=== PATIENT | female | born 2000 | race Caucasian/White ===

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

== ENCOUNTER 2019-09-05 22:53 | Emergency (ER) | payer BC, OTHER ==
--- NOTE | 2019-09-05 23:36 | ER Document Report ---
ED General - General Chief Complaint: Bloody Stools Stated Complaint: DIARRHEA Time Seen by Provider: 09/05/19 23:34 Primary Care Provider: ROXIE MINAYA NP [Primary Care Provider] - Follow up as needed Mode of Arrival: Ambulatory Information source: Patient TRAVEL OUTSIDE OF THE [place] IN LAST 30 DAYS: No - HPI Onset: Other - over the last 5 days Onset/Duration: Gradual Quality of pain: Cramping Severity: Moderate Pain Level: 2 Associated symptoms: Diarrhea - with blood in her stools, Nausea, Vomiting Exacerbated by: Denies Relieved by: Denies Similar symptoms previously: Yes - patient has had the same lower abdominal pains with endometriosis pain Recently seen / treated by doctor: Yes - Patient was recently diagnosed with Strep Throat and was prescribed Amox Notes: 19 year old female with a history of Endometriosis and Asthma here for several days of nausea, vomiting, blood diarrhea in the setting of recently taking Amoxicillin for a "throat infection." The patient says she saw an outpatient provider and was told she has a throat infection and she was prescribed Amoxicillin. The patient says she developed the nausea, vomiting, abdominal pain, and blood diarrhea after taking several days of Amoxicillin. The patient was told to stop taking Amoxicillin which she did but she is still having the symptoms. The patient denies fevers, chills, sweats, urinary symptoms. The patient is on her period. - Related Data Allergies/Adverse Reactions: No Known Allergies Allergy (Verified 09/05/19 22:58) Past Medical History - General Information source: Patient - Social History Smoking Status: Former Smoker Frequency of alcohol use: Occasional Drug Abuse: None Family History: Reviewed & Not Pertinent Patient has suicidal ideation: No Patient has homicidal ideation: No - Past Medical History Cardiac Medical History: Denies: Hx Coronary Artery Disease, Hx Heart Attack, Hx Hypertension Pulmonary Medical History: Reports: Hx Asthma - allergy induced asthma Denies: Hx Bronchitis, Hx COPD, Hx Pneumonia Neurological Medical History: Denies: Hx Cerebrovascular Accident, Hx Seizures Renal/ Medical History: Denies: Hx Peritoneal Dialysis Musculoskeletal Medical History: Denies Hx Arthritis Past Surgical History: Reports: Hx Tonsillectomy - Immunizations Immunizations up to date: Yes Hx Diphtheria, Pertussis, Tetanus Vaccination: Yes Review of Systems - Review of Systems Constitutional: No symptoms reported EENT: No symptoms reported Cardiovascular: No symptoms reported Respiratory: No symptoms reported Gastrointestinal: Abdominal pain, Diarrhea - with blood in it, Nausea, Vomiting Genitourinary: No symptoms reported Female Genitourinary: Other - patient is on her period Musculoskeletal: No symptoms reported Skin: No symptoms reported Hematologic/Lymphatic: No symptoms reported Neurological/Psychological: No symptoms reported -: Yes All other systems reviewed and negative Physical Exam - Vital signs Vitals: Temp Resp BP Pulse Ox 99.1 F 18 133/83 H 98 09/05/19 22:58 09/05/19 22:58 09/05/19 22:58 09/05/19 22:58 - Notes Notes: GENERAL: Well-appearing, well-nourished and in no acute distress. HEAD: Atraumatic, normocephalic. EYES: Pupils equal round and reactive to light, extraocular movements intact, sclera anicteric, conjunctiva are normal. ENT: TMs normal, nares patent, oropharynx clear without exudates. Moist mucous membranes. NECK: Normal range of motion, supple without lymphadenopathy or JVD. LUNGS: Breath sounds clear to auscultation bilaterally and equal. No wheezes rales or rhonchi. HEART: Regular rate and rhythm without murmurs, rubs or gallops. ABDOMEN: Soft, mild tenderness in lower abdomen bilaterally, normoactive bowel sounds. No guarding, no rebound. No masses appreciated. EXTREMITIES: Normal range of motion, no pitting or edema. No clubbing or cyanosis. NEUROLOGICAL: Cranial nerves II through XII grossly intact. Normal speech, normal gait. PSYCH: Normal mood, normal affect. SKIN: Warm, Dry, normal turgor, no rashes or lesions noted. Course - Re-evaluation Re-evalutation: 09/06/19 02:23 The patient has had several days of lower abdominal pains with nausea, vomiting, and bloody diarrhea. The patient was just on Amoxicillin so this could have caused her symptoms. Patient tested negative for C-diff in the ER today. Patient felt better after fluids, zofran, toradol, reglan, morphine. Patient has no urinary symptoms and she is currently on her period hence the abnormal appearing UA. Stool and Urine Cultures pending. Patient told to follow up with her PCP if symptoms persist for further work up. Patients blood work unremarkable today. - Vital Signs Vital signs: Temp Pulse Resp BP Pulse Ox 99.1 F 18 133/83 H 98 09/05/19 22:58 09/05/19 22:58 09/05/19 22:58 09/05/19 22:58 - Laboratory Result Diagrams: 09/05/19 23:13 09/05/19 23:13 Laboratory results interpreted by me: 09/05/19 09/05/19 23:13 23:37 Sodium 134.8 L Urine Blood LARGE H Ur Leukocyte Esterase SMALL H Discharge - Discharge Clinical Impression: Diarrhea Qualifiers: Diarrhea type: unspecified type Qualified Code(s): R19.7 - Diarrhea, unspecified Abdominal pain Qualifiers: Abdominal location: lower abdomen, unspecified Qualified Code(s): R10.30 - Lower abdominal pain, unspecified Condition: Stable Disposition: HOME, SELF-CARE Additional Instructions: Follow up with your primary care doctor and tell him/her you were in the ER for abdominal pain with blood stools. You had blood work including a CBC, CMP, Lipase which was all normal. You tested negative for C-diff but your stool culture is still pending. You have a urine culture pending as well. You will be notified if your stool or urine cultures are positive. Use Reglan for nausea/vomiting/abdominal cramps. Use over the counter Tylenol and Motrin for pain. Return to an ER for a large amount of rectal bleeding, high fevers, uncontrolled pain or if worse. Prescriptions: Metoclopramide HCl [Reglan 10 mg Tablet] 10 mg PO BID PRN #15 tablet PRN Reason: Referrals: ROXIE MINAYA [employer] [Primary Care Provider] - Follow up as needed
[2019-09-05 23:38] LABS: ABSOLUTE BASOPHILS # (AUTO) 0.1 10^3/uL (0.0-0.2); ABSOLUTE EOSINOPHILS # (AUTO) 0.4 10^3/uL (0.0-0.6); ABSOLUTE LYMPHOCYTES (AUTO) 2.5 10^3/uL (0.5-4.7); ABSOLUTE MONOCYTES (AUTO) 0.8 10^3/uL (0.1-1.4); ABSOLUTE NEUT (AUTO) 6.3 10^3/uL (1.7-8.2); EOSINOPHILS % (AUTO) 3.9 % (0-6); HEMATOCRIT 42.5 % (36.0-47.0); HEMOGLOBIN 14.7 g/dL (12.0-15.5); LYMPHOCYTES % (AUTO) 24.9 % (13-45); MEAN CORPUSCULAR HEMOGLOBIN 30.6 pg (27.0-33.4); MEAN CORPUSCULAR HGB CONC 34.7 g/dL (32.0-36.0); MEAN CORPUSCULAR VOLUME 88 fl (80-97); MONOCYTES % (AUTO) 8.1 % (3-13); PLATELET COUNT 233 10^3/uL (150-450); RED BLOOD COUNT 4.82 10^6/uL (3.72-5.28); RED CELL DISTRIBUTION WIDTH 12.6 % (11.5-14.0); SEGMENTED NEUTROPHILS % (AUTO) 62.1 % (42-78); TOTAL CELLS COUNTED % (AUTO) 100 %; WHITE BLOOD COUNT 10.2 10^3/uL (4.0-10.5)
[2019-09-05 23:49] LABS: ALBUMIN 4.4 g/dL (3.5-5.0); ALKALINE PHOSPHATASE 64 U/L (38-126); ANION GAP 7 (5-19); ASPARTATE AMINO TRANSFERASE 22 U/L (14-36); BILIRUBIN,TOTAL 0.4 mg/dL (0.2-1.3); BLOOD UREA NITROGEN 13 mg/dL (7-20); CALCIUM 9.5 mg/dL (8.4-10.2); CARBON DIOXIDE 27 mmol/L (22-30); CHLORIDE 101 mmol/L (98-107); GLUCOSE 99 mg/dL (75-110); POTASSIUM 4.3 mmol/L (3.6-5.0)
[2019-09-05] MEDS ORDERED: ONDANSETRON HCL INJ/PF 4 MG/2 ML SDV IV ONE (23:56)
[2019-09-05] MEDS ORDERED: KETOROLAC TROMETHAMINE INJ/PF 30 MG/1 ML SDV IV ONE (23:57)
[2019-09-05] MEDS ORDERED: NORMAL SALINE 1000 ML 1,000 ML IV ONE (23:57)
[2019-09-06 00:02] LABS: APPEARANCE,URINE CLEAR; BILIRUBIN,URINE NEGATIVE (NEGATIVE); COLOR,URINE YELLOW; GLUCOSE, URINE NEGATIVE (NEGATIVE); KETONES,URINE NEGATIVE (NEGATIVE); LEUKOCYTE ESTERASE,URINE SMALL (NEGATIVE); NITRITE,URINE NEGATIVE (NEGATIVE); PROTEIN,URINE NEGATIVE (NEGATIVE); URINE SPECIFIC GRAVITY 1.008; UROBILINOGEN,URINE NEGATIVE mg/dL (<2.0)
[2019-09-06] MEDS ORDERED: METOCLOPRAMIDE HCL INJ/PF 10 MG/2 ML SDV IV ONE (01:30)
[2019-09-06] MEDS ORDERED: MORPHINE SULFATE 10 MG/ML INJ IV ONE (01:31)
[2019-09-06 01:47] LABS: C DIFFICILE GDH NEGATIVE (NEGATIVE)
[2019-09-06 02:43] VITALS: BP 114/67
== END 2019-09-06 02:42 | disposition home or self-care (01) ==
LOC: ER 22:53
DX: R19.7 Diarrhea, unspecified (principal); R10.30 Lower abdominal pain, unspecified; R19.5 Other fecal abnormalities; R11.2 Nausea with vomiting, unspecified; J45.909 Unspecified asthma, uncomplicated; Z87.891 Personal history of nicotine dependence
CPT/HCPCS: 99284; 96361; 96374; 96375; 36415; 87045; 87205; 83690; 85025; 81025; 80053; 81001; 87324; 87449; J1885; J2765; J2270; J2405; J7030; 87086; 87088

== ENCOUNTER 2020-01-09 20:11 | Emergency (ER) | payer OTHER ==
[2020-01-09] MEDS ORDERED: ACETAMINOPHEN 325 MG TABLET PO ONE (20:31)
[2020-01-09] MEDS ORDERED: NORMAL SALINE 1000 ML 1,000 ML IV ONE ×2 (21:12→23:18)
--- NOTE | 2020-01-09 21:30 | ER Document Report ---
ED GI/ - General Chief Complaint: Nausea/Vomiting/Diarrhea Stated Complaint: LIGHTHEADED,NAUSEA,VOMITING,DIARRHEA Time Seen by Provider: 01/09/20 21:11 Primary Care Provider: ROXIE MINAYA NP [Primary Care Provider] - Follow up tomorrow JAKI GUNN MD [ACTIVE PROVISIONAL STAFF] - Follow up in 3-5 days Notes: Patient is a 19-year-old female who presents to the emergency department with a chief complaint of a fever, nausea, vomiting, diarrhea, and generally not feeling well. Patient states that she was coughed on by someone when she asked them to wear a mask at her work because the person did not want to wear a mask. Patient works at [employer]. Patient states that she has been laying in bed all day. She denies any shortness of breath or difficulty breathing. TRAVEL OUTSIDE OF THE [place] IN LAST 30 DAYS: No - Related Data Allergies/Adverse Reactions: No Known Allergies Allergy (Verified 09/05/19 22:58) Past Medical History - Social History Smoking Status: Current Every Day Smoker Frequency of alcohol use: None Drug Abuse: None Family History: Reviewed & Not Pertinent Patient has homicidal ideation: No - Past Medical History Cardiac Medical History: Denies: Hx Coronary Artery Disease, Hx Heart Attack, Hx Hypertension Pulmonary Medical History: Reports: Hx Asthma - allergy induced asthma Denies: Hx Bronchitis, Hx COPD, Hx Pneumonia Neurological Medical History: Denies: Hx Cerebrovascular Accident, Hx Seizures Renal/ Medical History: Denies: Hx Peritoneal Dialysis GI Medical History: Reports: Hx Gastroesophageal Reflux Disease Musculoskeletal Medical History: Denies Hx Arthritis Psychiatric Medical History: Reports: Hx Depression - anxiety Past Surgical History: Reports: Hx Gynecologic Surgery - x2, Hx Tonsillectomy - Immunizations Immunizations up to date: Yes Hx Diphtheria, Pertussis, Tetanus Vaccination: Yes Review of Systems - Review of Systems Notes: REVIEW OF SYSTEMS: CONSTITUTIONAL : Denies recent unintentional weight loss. See HPI. EENT: Denies eye, ear, throat, or mouth pain, discharge, or symptoms. Denies nasal or sinus congestion. CARDIOVASCULAR: Denies chest pain. RESPIRATORY: Denies shortness of breath, cough, congestion, difficulty breathing, or wheezing. GASTROINTESTINAL: See HPI. GENITOURINARY: Denies difficulty urinating, burning, blood in urine, urgency or frequency. MUSCULOSKELETAL: Denies neck and back pain. Denies joint pain or swelling. SKIN: Denies rash, itchiness, or lesions HEMATOLOGIC : Denies easy bruising or bleeding. LYMPHATIC: Denies swollen, painful, enlarged glands. NEUROLOGICAL: Denies no numbness or tingling denies weakness. Denies headache. Denies altered mental status. Denies alteration in speech. PSYCHIATRIC: Denies stress, anxiety, alteration in sleep patterns, or depression. All other systems reviewed and negative. Physical Exam - Vital signs Vitals: Temp Pulse Resp BP Pulse Ox 102.6 F H 132 H 20 102/54 L 100 01/09/20 20:33 01/09/20 20:33 01/09/20 20:33 01/09/20 20:33 01/09/20 20:33 - Notes Notes: PHYSICAL EXAMINATION: GENERAL: Appears unwell, no acute distress. HEAD: Normocephalic, atraumatic. EYES: PERRL, conjunctiva normal, all extraocular movements intact, sclera nonicteric ENT: Moist mucous membranes. NECK: Supple, no noticeable swelling, redness, rash. Normal range of motion. LUNGS: Equal breath sounds bilaterally and clear to auscultation. No wheezes rales or rhonchi. CARDIOVASCULAR: S1-S2, tachycardic, regular rhythm. Radial pulses 2+, normal. ABDOMEN: Normoactive bowel sounds. Soft, nontender, no guarding, no rebound tenderness, and no masses palpated. EXTREMITIES: Normal strength and range of motion, no pitting or edema. No cyanosis. NEUROLOGICAL: Moves all extremities upon command. Strength 5/5 in all extremities. PSYCH: Normal mood, normal affect. SKIN: Warm, dry. No rash, lesions, ulcerations noted. Normal skin turgor. ENGINE ASSEMBLER: Cervical motion tenderness noted. Bilateral adnexal tenderness noted. Course - Re-evaluation Re-evalutation: 01/09/20 23:43 Patient has a 4.8 cm indeterminate right ovarian cyst. Radiologist is recommending pelvic ultrasound. Order placed. Patient also has some colitis. Appendix is normal. Pelvic exam done with YUNG Franco. Cervical motion tenderness noted with chandelier sign.Hematology shows a leukocytosis of 15,000 with a left shift. This is most likely due to her PAD and left otitis media. Urinalysis shows a moderate blood. Patient has 3+ epithelial cells, 3+ bacteria, and 2+ WBCs. No yeast or trichomonas noted. Chlamydia and gonorrhea were negative. On my initial exam, the patient had erythema and purulent drainage behind her left tympanic membrane. Patient received 1 g of Rocephin. 01/10/20 02:05 Patient is now tolerating oral fluids. Discussed this patient with Dr. Acosta my attending. Patient's heart rate is now in the 90s. We will send the patient home with nausea medication and treatment for pelvic inflammatory disease. Patient is in agreement with this plan. Follow-up precautions were given. Verbal discharge instructions were given to the patient. They verbalized understanding. They are stable for discharge. - Vital Signs Vital signs: Temp Pulse Resp BP Pulse Ox 98.5 F 116 H 17 103/57 L 99 01/10/20 02:37 01/09/20 23:11 01/10/20 02:00 01/10/20 02:37 01/09/20 23:11 - Laboratory Result Diagrams: 01/09/20 21:38 01/09/20 21:38 Laboratory results interpreted by me: 01/09/20 01/09/20 01/09/20 21:36 21:38 21:38 WBC 15.1 H Plt Count 140 L Seg Neuts % (Manual) 83 H Lymphocytes % (Manual) 7 L Abs Neuts (Manual) 13.1 H Sodium 132.5 L Potassium 3.5 L Carbon Dioxide 21 L BUN 6 L Glucose 115 H Urine Protein 30 H Urine Ketones 80 H Urine Blood MODERATE H Discharge - Discharge Clinical Impression: Pelvic inflammatory disease Fever Qualifiers: Fever type: due to other condition Qualified Code(s): R50.81 - Fever presenting with conditions classified elsewhere Ovarian cyst Qualifiers: Laterality: right Qualified Code(s): N83.201 - Unspecified ovarian cyst, right side Left otitis media Qualifiers: Otitis media type: suppurative Chronicity: acute Recurrence: not specified as recurrent Spontaneous tympanic membrane rupture: without spontaneous rupture Qualified Code(s): H66.002 - Acute suppurative otitis media without spontaneous rupture of ear drum, left ear Disposition: HOME, SELF-CARE Instructions: Antinausea Medication ([facility]), Diarrhea, Nonspecific ([facility]), Intravenous (IV) Fluids ([facility]), Reglan ([facility]), Vomiting ([facility]) Additional Instructions: Your are being treated for pelvic inflammatory disease. You are being started on 2 different antibiotics and you need to take these until you finish them. Please return if you have worsening pain, persistent vomiting, spike a fever greater than 101F, or have any other symptoms that are concerning to you. Please follow closely with you primary care physician or your SEPTIC TECHNICIAN within 3 to 5 days. You also have an ovarian cyst that is 4 centimeters in size. You also have an inner ear infection on the left side. The antibiotics given given here in the emergency department should help clear this. Follow-up with your primary care provider in the next 24 to 48 hours in regards to this visit. Prescriptions: Doxycycline Hyclate 100 mg PO BID #28 tablet. Metronidazole [Flagyl 500 mg Tablet] 500 mg PO Q6H #28 tablet Metoclopramide HCl [Reglan 10 mg Tablet] 10 mg PO Q6HP PRN #20 tablet PRN Reason: Ondansetron [Zofran Odt 4 mg Tablet] 1 - 2 tab PO Q4H PRN #15 tab.rapdis PRN Reason: For Nausea/Vomiting Referrals: ROXIE MINAYA NP [Primary Care Provider] - Follow up tomorrow JAKI GUNN MD [ACTIVE PROVISIONAL STAFF] - Follow up in 3-5 days
[2020-01-09] MEDS ORDERED: CEFTRIAXONE INJ 1000 MG VIAL IV ONE (21:52)
--- NOTE | 2020-01-09 22:03 | RADIOLOGY REPORT (SQ) ---
EXAM DESCRIPTION: XR CHEST 1 VIEW COMPLETED DATE/TME: 01/09/2020 21:12 CLINICAL HISTORY: 19 years, Female, fever; congestion COMPARISON: None. NUMBER OF VIEWS: 1 TECHNIQUE: Portable chest LIMITATIONS: None. FINDINGS: Heart size is normal. Lungs are clear. No pneumothorax IMPRESSION: Negative chest copyright 2011 [employer]- All Rights Reserved
[2020-01-09 22:04] LABS: APPEARANCE,URINE SLIGHTLY-CLOUDY; BILIRUBIN,URINE NEGATIVE (NEGATIVE); COLOR,URINE YELLOW; GLUCOSE, URINE NEGATIVE (NEGATIVE); KETONES,URINE 80 mg/dL (NEGATIVE); LEUKOCYTE ESTERASE,URINE NEGATIVE (NEGATIVE); NITRITE,URINE NEGATIVE (NEGATIVE); PROTEIN,URINE 30 mg/dL (NEGATIVE); URINE SPECIFIC GRAVITY 1.014; UROBILINOGEN,URINE NEGATIVE mg/dL (<2.0)
[2020-01-09 22:08] LABS: HEMATOCRIT 43.7 % (36.0-47.0); HEMOGLOBIN 14.9 g/dL (12.0-15.5); MEAN CORPUSCULAR HEMOGLOBIN 30.8 pg (27.0-33.4); MEAN CORPUSCULAR HGB CONC 34.2 g/dL (32.0-36.0); MEAN CORPUSCULAR VOLUME 90 fl (80-97); RED BLOOD COUNT 4.85 10^6/uL (3.72-5.28); RED CELL DISTRIBUTION WIDTH 13.1 % (11.5-14.0); WHITE BLOOD COUNT 15.1 10^3/uL (4.0-10.5)
[2020-01-09 22:25] LABS: PLATELET COUNT 140 10^3/uL (150-450)
[2020-01-09 22:30] LABS: ABSOLUTE LYMPHOCYTES# (MANUAL) 1.1 10^3/uL (0.5-4.7); ABSOLUTE MONOCYTES # (MANUAL) 0.9 10^3/uL (0.1-1.4); BAND NEUTROPHILS % (MANUAL) 4 % (3-5); BASOPHILS % (MANUAL) 0 % (0-2); EOSINOPHILS % (MANUAL) 0 % (0-6); LYMPHOCYTES % (MANUAL) 7 % (13-45); MONOCYTES % (MANUAL) 6 % (3-13); SEGMENTED NEUTROPHILS % (MAN) 83 % (42-78); TOTAL CELLS COUNTED 100
[2020-01-09 22:32] LABS: PLATELET CLUMPS PRESENT; PLATELET COMMENT ADEQUATE; RBC MORPHOLOGY COMMENT NORMO-CYTIC/CHROMIC
[2020-01-09 22:38] LABS: ALBUMIN 4.3 g/dL (3.5-5.0); ALKALINE PHOSPHATASE 71 U/L (38-126); ANION GAP 11 (5-19); ASPARTATE AMINO TRANSFERASE 26 U/L (14-36); BILIRUBIN,DIRECT 0.4 mg/dL (0.0-0.4); BILIRUBIN,TOTAL 1.3 mg/dL (0.2-1.3); BLOOD UREA NITROGEN 6 mg/dL (7-20); CALCIUM 9.3 mg/dL (8.4-10.2); CARBON DIOXIDE 21 mmol/L (22-30); CHLORIDE 101 mmol/L (98-107); GLUCOSE 115 mg/dL (75-110); POTASSIUM 3.5 mmol/L (3.6-5.0); TOTAL PROTEIN 7.2 g/dL (6.3-8.2)
--- NOTE | 2020-01-09 23:26 | RADIOLOGY REPORT (SQ) ---
EXAM DESCRIPTION: CT ABDOMEN PELVIS WITH IV CONTRAST COMPLETED DATE/TME: 01/09/2020 21:29 CLINICAL HISTORY: RLQ abd pain COMPARISON: 03/10/2015 TECHNIQUE: CT of the abdomen and pelvis performed following IV administration of 86 mL Omnipaque 350. FINDINGS: Lung Bases: The visualized lung bases are clear. Bones: No destructive bone lesions identified. Abdomen: Liver: The liver has normal size and density. No intrahepatic biliary dilatation. Gallbladder: No calcified gallstones. Spleen, Pancreas, and Adrenal Glands: The spleen, pancreas, and adrenal glands are unremarkable. Kidneys: No hydronephrosis or obstructing calculus. Vasculature: The aorta and IVC have normal caliber and position. Retroaortic left renal vein. The portal vein is patent. The proximal visceral and renal arteries are patent. Stomach: The stomach and duodenum have normal course. Other: No free intraperitoneal air. No free fluid or lymphadenopathy. Pelvis: Bladder: Urinary bladder is unremarkable. Bowel: No dilated loops of large or small bowel. Mild wall thickening of the colon. Appendix: Normal appendix. Pelvis: 4.8 x 3.5 cm indeterminant possibly septated right ovarian cyst. Uterus is not enlarged. IMPRESSION: 1. 4.8 cm indeterminate right ovarian cyst. Recommend prompt follow-up with pelvic US. Reference: J Am Niecy Radiol 2013;10:675-681 2. Mild wall thickening of the colon can be seen with nonspecific colitis. 3. Normal appendix. This exam was performed according to our departmental dose-optimization program, which includes automated exposure control, adjustment of the mA and/or kV according to patient size and/or use of iterative reconstruction technique.
[2020-01-09] MEDS ORDERED: MORPHINE SULFATE 10 MG/ML INJ IV ONE (23:28)
[2020-01-09] MEDS ORDERED: IBUPROFEN 600 MG TABLET PO ONE (23:39)
[2020-01-09 23:50] LABS: BACTERIA (WET MOUNT) 3+ BACTERIA SEEN; EPITHELIALS (WET MOUNT) 3+ EPITHELIALS SEEN; T.VAGINALIS (WET MOUNT) NO TRICHOMONAS SEEN; WBCS (WET MOUNT) 2+ WBCS SEEN; YEAST (WET MOUNT) NO YEAST SEEN
[2020-01-09] MEDS ORDERED: AZITHROMYCIN 250 MG TABLET PO ONE (23:50)
[2020-01-10] MEDS ORDERED: METOCLOPRAMIDE HCL INJ/PF 10 MG/2 ML SDV IV ONE (01:10)
--- NOTE | 2020-01-10 01:20 | RADIOLOGY REPORT (SQ) ---
EXAM DESCRIPTION: US PELVIS TRANSVAGINAL COMPLETED DATE/TME: 01/09/2020 23:28 CLINICAL HISTORY: 19 years, Female, eval ovarian cyst COMPARISON: CT 01/09/2020 TECHNIQUE: Emergent pelvic ultrasound LIMITATIONS: None. FINDINGS: The uterus measures 8.4 x 3.9 x 3.4 cm. The myometrium is homogenous. The endometrium measures 11 mm in thickness. The right ovary measures 5.3 x 3.7 x 4.4 cm. Left ovary measures 3.5 x 2.0 x 2.2 cm. Arterial and venous flow to each ovary. There is a 4.0 x 3.5 cm centrally septated right ovarian cyst. This appears to have some low-level internal echoes and may be hemorrhagic in nature. No solid adnexal mass. No free fluid IMPRESSION: 4 cm septated right ovarian cyst. This could reflect hemorrhagic cyst but is indeterminate. Recommend follow-up as per below. Recommendations for f/u of ovarian complex cysts (1): Endometrioma: <= 7 cm: US f/u 6-12 wks. If not surgically resected, US f/u annually. >7 cm: Consider MR w/IVC or surgical evaluation. If not surgically resected, US f/u annually. Dermoid: <= 5 cm: MR w/IV contrast. If not surgically resected, US f/u annually. >5 cm: Surgical evaluation. If not surgically resected, MR w/IVC; then US f/u annually Indeterminate cyst - multiple thin <=3 mm septations: Any size in any age: Consider surgical evaluation. Indeterminate cyst - non-hyperechoic nodule w/o blood flow: Any size in any age: Consider MR w/IVC or surgical evaluation. Indeterminate cyst - other, not classic for but suggestive of hemorrhagic cyst, endometrioma or dermoid: Pre-menopause: <= 7 cm: US f/u 6-12 weeks. If unchanged, continue f/u with US or consider MR w/IVC. If these do not confirm endometrioma or dermoid, consider surgical evaluation. >7 cm: Consider MR w/IVC or surgical evaluation. Post-menopause (>=1 year from last menstrual period): Any size: Consider surgical evaluation. Cyst worrisome for malignancy (thick, irregular >=3 mm septations or nodule with blood flow): Any size in any age: Consider surgical evaluation. (1) Recommendations based upon the 2010 SRU Consensus Conference Statement on the Management of Asymptomatic Ovarian and Other Adnexal Cysts Imaged at US: Radiology. 2009;256(3):940-87 copyright 2011 [employer]- All Rights Reserved
[2020-01-10 01:26] LABS: CHLAM PCR NOT DETECTED (NOT DETECT)
[2020-01-10] MEDS ORDERED: ONDANSETRON ODT 4 MG TAB (6 TAB/ER DISP) PO PRN (02:12)
[2020-01-10 02:42] VITALS: BP 103/57
== END 2020-01-10 02:42 | disposition home or self-care (01) ==
LOC: ER 20:11
DX: N73.9 Female pelvic inflammatory disease, unspecified (principal); K52.9 Noninfective gastroenteritis and colitis, unspecified; N83.291 Other ovarian cyst, right side; H66.92 Otitis media, unspecified, left ear; R50.81 Fever presenting with conditions classified elsewhere; R11.2 Nausea with vomiting, unspecified; F17.200 Nicotine dependence, unspecified, uncomplicated; J45.909 Unspecified asthma, uncomplicated; R31.9 Hematuria, unspecified; Z20.828 Contact with and (suspected) exposure to other viral communicable diseases
CPT/HCPCS: 99285; 96361; 96375; 96365; 36415; 87040; 87070; 87210; 87880; 83605; 83690; 85025; 87635; 81025; 80053; 81001; 87491; 87591; 71045; 76830; 93976; 74177; J2765; J2270; J0696; J7030; C9803

== ENCOUNTER 2020-02-20 07:03 | Day surgery (SDC) | payer OTHER ==
[2020-02-20] MEDS ORDERED: PROPOFOL INJ 200 MG/20 ML VIAL IV ONE (07:41)
--- NOTE | 2020-02-20 09:16 | Operative Report ---
Operative Report DATE OF SURGERY: 02/20/20 Operative Report: The risk, benefits and alternatives of the procedure including the risk of bleeding, perforation requiring surgery have been explained to the patient in detail and informed consent has been obtained. Patient is placed in left, lateral decubital position. Timeout was called. Propofol medication is administered. Rectal examination is done which did not reveal any masses, tears or fissures. An Olympus videoscope was introduced into the patient's rectum and carefully guided towards the cecum. Cecum was identified by the usual anatomical landmarks including the ileocecal valve as well as the appendiceal office. Photodocumentation is obtained. Scope was then sequentially pulled back via the various segments of the colon including the ascending colon, hepatic flexure, transverse colon, splenic flexure, descending colon and finally into the rectosigmoid portions of the colon. Retroflexion maneuver is performed. The risks benefits and alternatives of the procedure explained to the patient in detail and informed consent is obtained.A GIF Olympus video scope was inserted into the patient's mouth and hypopharynx, the esophagus is identified intubated and insufflated ,the scope was then advanced through the esophagus stomach and duodenum, retroflexion maneuver is done ,the esophagus stomach and first and second portions of the duodenum examined PREOPERATIVE DIAGNOSIS: Change of bowel habits. Abdominal pain, nausea vomiting POSTOPERATIVE DIAGNOSIS: Mild terminal ileitis status post biopsy. Rectal inflammation status post biopsy. internal hemorrhoids. Gastritis status post biopsy OPERATION: Colonoscopy with biopsy. EGD with biopsy SURGEON: JIMMY MORAN ANESTHESIA: LMAC TISSUE REMOVED OR ALTERED: As noted above. COMPLICATIONS: None. ESTIMATED BLOOD LOSS: None. INTRAOPERATIVE FINDINGS: As noted above. PROCEDURE: Patient tolerated the procedure well. No immediate postprocedure complications are noted. Patient is discharged in good condition. Discharge date 02/20/2020. Discharge diet: Regular. Discharge activity: Regular. 2 to 3-week follow-up to discuss findings. Patient is instructed to call the office or proceed to the emergency room should he be any further palpitation. Wait on the pathology.
[2020-02-20 09:56] VITALS: BP 112/67
== END 2020-02-20 09:58 | disposition home or self-care (01) ==
LOC: END 07:03
PROVIDERS: ATTEND Internal Medicine Gastroenterology
DX: K29.50 Unspecified chronic gastritis without bleeding (principal); K50.00 Crohn's disease of small intestine without complications; K44.9 Diaphragmatic hernia without obstruction or gangrene; K21.9 Gastro-esophageal reflux disease without esophagitis; K64.8 Other hemorrhoids; R11.14 Bilious vomiting; Z80.0 Family history of malignant neoplasm of digestive organs; I10 Essential (primary) hypertension; J45.909 Unspecified asthma, uncomplicated; F17.200 Nicotine dependence, unspecified, uncomplicated; E66.9 Obesity, unspecified; Z68.32 Body mass index [BMI] 32.0-32.9, adult; Z79.899 Other long term (current) drug therapy; Z03.818 Encounter for observation for suspected exposure to other biological agents ruled out
CPT/HCPCS: 43239; 45380; 87635; 88342 ×2; 88305 ×2; J2704; C9803; 813